=== PATIENT | male | born 1960 | race Caucasian/White ===

== ENCOUNTER → 2020-02-13 | Outpatient (CLI) | payer BC ==
[~2020-02-13] MED LIST: COZAAR 25 MG TA25 M1 PO; FISH OIL 1,001000 M2; LIPITOR 20 MG T20 M1; MULTIVITAMINS1 EAC7; NEO-BACIT-POLY3.5 GM OP; PREDNISONE 10 M10 MG PO; TRIAMCINOLONE A80 GM TOP
== END ==
LOC: M.LAB 09:27
PROVIDERS: ATTEND Internal Medicine Gastroenterology
DX: Z01.818 Encounter for other preprocedural examination (principal); Z20.828 Contact with and (suspected) exposure to other viral communicable diseases; K62.5 Hemorrhage of anus and rectum; R19.5 Other fecal abnormalities

== ENCOUNTER → 2020-02-19 | Outpatient (CLI) | payer BC | LOC: M.LAB 00:49 | PROVIDERS: ATTEND Anesthesiology | DX: E87.6 Hypokalemia (principal) ==